=== PATIENT | female | born 1930 | race Caucasian/White ===

== ENCOUNTER 2016-12-07 13:28 | Emergency (ER) | payer MEDICARE, OTHER ==
[~2016-12-07] VITALS: Ht 149.9 cm; Wt 64.0 kg
[~2016-12-07 13:28] MED LIST: CELE20TA PO; CLOP75 PO; LEVA750T9 PO; LORT5TAB PO; OXYB5TAB33 PO; SIMV20 PO; TUSSSUS PO; ZITH250T PO
[2016-12-07 13:42] VITALS: BP 181/79; PULSE 88; RESP 22; TEMP 97.9; O2SAT 97
[2016-12-07] MEDS ORDERED: SODIUM CHLORIDE 0.9% FLUSH 10 ML FLUSH IVF PRN (14:00)
--- NOTE | 2016-12-07 14:02 | PD ---
HPI Chief Complaint: Respiratory Distress Time Seen by Provider: 13:49 Travel History International Travel<30 days: No Contact w/Intl Traveler<30days: No Traveled to known affect area: No History of Present Illness HPI The patient is a 86-year-old female who presents emergency department shortness of breath. The patient was at [facility] earlier today to have surgery on the left cataract, when she became short of breath. The patient apparently had a coughing spell and appeared short of breath, then had an O2 saturation that was in the upper 70s and lower 80s. The patient was administered Solu-Medrol and one breathing treatment by EMS and she now notes her shortness of breath has resolved. She does note a history of COPD and tobacco use, has chronic inhalers that she uses. The patient also has a history of previous CVA with left-sided deficits. The patient does note her shortness of breath has resolved, denies any current chest pain, dizziness, lightheadedness, or diaphoresis. PFSH Past Medical History Hx Anticoagulant Therapy: Yes (WARFARIN DAILY) Cerebrovascular Accident: Yes (1999) Respiratory: Yes (COPD) ?: Not : 4 Para: 4 Past Surgical History Cardiac Surgery: Yes (BILAT CEAS) Section: Yes Cholecystectomy: Yes Hysterectomy: Yes Social History Alcohol Use: No Tobacco Use: No Substance Use: No Allergies-Medications (Allergen,Severity, Reaction): Coded Allergies: No Known Allergies (Verified , 12/07/16) Reported Meds & Prescriptions Reported Meds & Active Scripts Active Lortab 5/500 (Acetaminophen/Hydrocodone Bitart) 5 Mg/500 Mg Tab 1-2 Tab PO Q6HPRN FOR PAIN Levaquin (Levofloxacin) 750 Mg Tab 750 Mg PO DAILY Reported Zocor (Simvastatin) 20 Mg Tab 20 Mg PO HS Celexa (Citalopram Hydrobromide) 20 Mg Tab 20 Mg PO DAILY Zithromax Z-Heber (Azithromycin) 250 Mg Tab 250 Mg PO DIRECTED 5 Days 500 MG (2 TABLETS) PO ON DAY 1, THEN 250 MG (1 TABLET) PO ON DAYS 2 TO 5. Plavix (Clopidogrel Bisulfate) 75 Mg Tab 75 Mg PO DAILY Ditropan (Oxybutynin Chloride) 5 Mg Tab 5 Mg PO DAILY Tussionex (Chlorphenir/Hydrocodone Polistirex) Liqcr 5 Ml PO BIDPRN Review of Systems Except as stated in HPI: all other systems reviewed are Neg General / Constitutional: No: Fever, Chills Cardiovascular: No: Chest Pain or Discomfort Respiratory: Positive: Cough, Shortness of Breath, Wheezing Gastrointestinal: No: Nausea, Vomiting, Abdominal Pain Musculoskeletal: Positive: Pain (pain in the left posterior leg), No: Edema Neurologic: Positive: Focal Abnormalities (previous left-sided weakness from prior stroke) Physical Exam Narrative GENERAL: Awake, alert, pleasant 86 year-old female who appears her stated age and is in no acute respiratory distress. SKIN: Warm and dry. HEAD: Atraumatic. Normocephalic. EYES: Pupils equal and round. No scleral icterus. No injection or drainage. ENT: No nasal bleeding or discharge. Mucous membranes pink and moist. NECK: Trachea midline. No JVD. CARDIOVASCULAR: Regular rate and rhythm. No murmur appreciated. RESPIRATORY: No accessory muscle use. Prolonged expiratory phase with a few scattered wheezes. GASTROINTESTINAL: Abdomen soft, non-tender, nondistended. No rebound tenderness. MUSCULOSKELETAL: No obvious deformities. Tenderness over the posterior aspect the left thigh and the left calf. NEUROLOGICAL: Awake and alert. No obvious cranial nerve deficits. Unable to use her left upper extremity and left lower extremity. Contractures of the upper and lower left extremity noted. PSYCHIATRIC: Appropriate mood and affect; insight and judgment normal. Data Data Last Documented VS Vital Signs Date Time Temp Pulse Resp B/P Pulse Ox O2 Delivery O2 Flow Rate FiO2 12/07/16 14:25 22 97 2 12/07/16 14:25 Nasal Cannula 12/07/16 13:42 97.9 88 181/79 Orders Complete Blood Count With Diff (12/07/16 13:49) Comprehensive Metabolic Panel (12/07/16 13:49) B-Type Natriuretic Peptide (12/07/16 13:49) Magnesium (Mg) (12/07/16 13:49) Ckmb (Isoenzyme) Profile (12/07/16 13:49) Troponin I (12/07/16 13:49) Iv Access Insert/Monitor (12/07/16 13:49) Electrocardiogram (12/07/16 13:49) Ecg Monitoring (12/07/16 13:49) Oximetry (12/07/16 13:49) Oxygen Administration (12/07/16 13:49) Chest, Single Ap (12/07/16 13:49) Us Leg Venous Doppler (12/07/16 13:49) Sodium Chloride 0.9% Flush (Ns Flush) (12/07/16 14:00) Albuterol-Ipratropium Neb (Duoneb Neb) (12/07/16 14:00) CKMB (12/07/16 14:00) CKMB% (12/07/16 14:00) Labs Laboratory Tests Test 12/07/16 14:00 White Blood Count 7.9 TH/MM3 Red Blood Count 3.90 MIL/MM3 Hemoglobin 12.3 GM/DL Hematocrit 34.8 % Mean Corpuscular Volume 89.3 FL Mean Corpuscular Hemoglobin 31.5 PG Mean Corpuscular Hemoglobin 35.3 % Concent Red Cell Distribution Width 13.0 % Platelet Count 324 TH/MM3 Mean Platelet Volume 7.4 FL Neutrophils (%) (Auto) 54.1 % Lymphocytes (%) (Auto) 33.8 % Monocytes (%) (Auto) 8.8 % Eosinophils (%) (Auto) 2.1 % Basophils (%) (Auto) 1.2 % Neutrophils # (Auto) 4.3 TH/MM3 Lymphocytes # (Auto) 2.7 TH/MM3 Monocytes # (Auto) 0.7 TH/MM3 Eosinophils # (Auto) 0.2 TH/MM3 Basophils # (Auto) 0.1 TH/MM3 CBC Comment DIFF FINAL Differential Comment Sodium Level 135 MEQ/L Potassium Level 4.2 MEQ/L Chloride Level 101 MEQ/L Carbon Dioxide Level 25.0 MEQ/L Anion Gap 9 MEQ/L Blood Urea Nitrogen 11 MG/DL Creatinine 1.09 MG/DL Estimat Glomerular Filtration 48 ML/MIN Rate Random Glucose 91 MG/DL Calcium Level 9.3 MG/DL Magnesium Level 2.0 MG/DL Total Bilirubin 0.4 MG/DL Aspartate Amino Transf 25 U/L (AST/SGOT) Alanine Aminotransferase 11 U/L (ALT/SGPT) Alkaline Phosphatase 91 U/L Total Creatine Kinase 144 U/L Creatine Kinase MB 1.7 NG/ML Troponin I LESS THAN 0.02 NG/ML B-Type Natriuretic Peptide 77 PG/ML Total Protein 7.2 GM/DL Albumin 3.5 GM/DL MDM Medical Decision Making Medical Screen Exam Complete: Yes Emergency Medical Condition: Yes Medical Record Reviewed: Yes Interpretation(s) EKG reveals normal sinus rhythm with a rate in 95. Left bundle branch block. Laboratory Tests Test 12/07/16 14:00 White Blood Count 7.9 TH/MM3 Red Blood Count 3.90 MIL/MM3 Hemoglobin 12.3 GM/DL Hematocrit 34.8 % Mean Corpuscular Volume 89.3 FL Mean Corpuscular Hemoglobin 31.5 PG Mean Corpuscular Hemoglobin 35.3 % Concent Red Cell Distribution Width 13.0 % Platelet Count 324 TH/MM3 Mean Platelet Volume 7.4 FL Neutrophils (%) (Auto) 54.1 % Lymphocytes (%) (Auto) 33.8 % Monocytes (%) (Auto) 8.8 % Eosinophils (%) (Auto) 2.1 % Basophils (%) (Auto) 1.2 % Neutrophils # (Auto) 4.3 TH/MM3 Lymphocytes # (Auto) 2.7 TH/MM3 Monocytes # (Auto) 0.7 TH/MM3 Eosinophils # (Auto) 0.2 TH/MM3 Basophils # (Auto) 0.1 TH/MM3 CBC Comment DIFF FINAL Differential Comment Sodium Level 135 MEQ/L Potassium Level 4.2 MEQ/L Chloride Level 101 MEQ/L Carbon Dioxide Level 25.0 MEQ/L Anion Gap 9 MEQ/L Blood Urea Nitrogen 11 MG/DL Creatinine 1.09 MG/DL Estimat Glomerular Filtration 48 ML/MIN Rate Random Glucose 91 MG/DL Calcium Level 9.3 MG/DL Magnesium Level 2.0 MG/DL Total Bilirubin 0.4 MG/DL Aspartate Amino Transf 25 U/L (AST/SGOT) Alanine Aminotransferase 11 U/L (ALT/SGPT) Alkaline Phosphatase 91 U/L Total Creatine Kinase 144 U/L Creatine Kinase MB 1.7 NG/ML Troponin I LESS THAN 0.02 NG/ML B-Type Natriuretic Peptide 77 PG/ML Total Protein 7.2 GM/DL Albumin 3.5 GM/DL Last Impressions Chest X-Ray 12/07/16 [id number] Signed Impressions: Service Date/Time: Wednesday, December 07, 2016 13:58 - CONCLUSION: 1. Linear atelectatic changes/scarring in the right perihilar distribution and left lower lung. 2. No confluent infiltrate or effusion. Jc Berman MD Ultrasound of the left lower extremity reveals no evidence of deep venous thrombosis within the left lower extremity. Differential Diagnosis Differential diagnosis includes COPD exacerbation, bronchitis, pneumonia, acute coronary syndrome, pulmonary embolism, pleural effusion, congestive heart failure. Narrative Course IV was established, labs are drawn and sent, and the patient was placed on cardiac telemetry monitoring and continuous pulse oximetry monitoring. EKG was ordered and interpreted. Chest x-ray was obtained. The patient received Solu- Medrol prior to arrival with one albuterol nebulizer with improvement of her symptoms, therefore, was administered 2 more DuoNeb's. Labs are unremarkable. Troponin is negative. BNP is unremarkable. Chest x-ray reveals chronic changes , no acute findings. The patient was reevaluated. The patient's O2 sat was 92% , her symptoms had improved. She does complain of leg pain, therefore, was administered Tylenol. Patient will be discharged home on prednisone Diagnosis Primary Impression: COPD exacerbation Patient Instructions: General Instructions Additional Instructions: Medications as directed. Please provide the patient a copy of her x-rays, ultrasound results, and lab results at discharge. Med/Other Pt SpecificInfo: Prescription(s) given Scripts Azithromycin (Zithromax Z-Heber)250 Mg [id number] Mg PO DIRECTED #1 DSPK Ref 0 500 MG (2 tabs) day 1, then 1 tab days 2-5. Prov:Henrique Tapia MD 12/07/16 Albuterol 18 GM Inh (Ventolin Hfa 18 GM Inh)90 Mcg/Act Aer2 Puff INH Q4H PRN ( SHORTNESS OF BREATH) #1 INHALER Ref 0 Prov:Henrique Tapia MD 12/07/16 Prednisone (Deltasone)20 Mg Tab40 Mg PO DAILY 4 Days Ref 0 Prov:Henrique Tapia MD 12/07/16 Disposition: 01 DISCHARGE HOME (discharge back to [facility]) Condition: Stable Henrique Tapia MD Dec 07, 2016 14:02
[2016-12-07 14:11] VITALS: O2SAT 99
[2016-12-07] MEDS: RESP: ALBUTEROL 2.5 MG/IPRATROPIUM 0.5 MG NEB (SCH) INH (14:11)
[2016-12-07 14:12] LABS: AUTOMATED NEUTROPHIL # 4.3 TH/MM3 (1.8-7.7); BASOPHIL # 0.1 TH/MM3 (0-0.2); BASOPHIL % 1.2 % (0.0-2.0); EOSINOPHIL # 0.2 TH/MM3 (0-0.4); EOSINOPHIL % 2.1 % (0.0-4.0); HEMATOCRIT 34.8 % (35.0-46.0); HEMO FLAGS DIFF FINAL; LYMPH % 33.8 % (9.0-44.0); LYMPHOCYTE # 2.7 TH/MM3 (1.0-4.8); MEAN CELL VOLUME 89.3 FL (80.0-100.0); MEAN CORPUSCULAR HEMOGLOBIN 31.5 PG (27.0-34.0); MEAN CORPUSCULAR HGB CONC 35.3 % (32.0-36.0); MONO % 8.8 % (0.0-8.0); NEUT % 54.1 % (16.0-70.0); PLATELET COUNT 324 TH/MM3 (150-450); WHITE BLOOD COUNT 7.9 TH/MM3 (4.0-11.0)
--- NOTE | 2016-12-07 14:15 | RADRPT ---
EXAM DATE/TIME: 12/07/2016 13:58 [facility] COMPARISON: No previous studies available for comparison. INDICATIONS : Short of breath. MEDICAL HISTORY : None. SURGICAL HISTORY : None. ENCOUNTER: Initial ACUITY: 1 day PAIN SCORE: 0/10 LOCATION: Bilateral chest FINDINGS: A single view of the chest demonstrates the lungs to be symmetrically aerated with linear atelectatic changes/scarring in the right perihilar distribution and left base. No confluent infiltrate or effus ion. Heart size is normal. Surgical clips in the right upper abdominal quadrant are characteristic of prior cholecystectomy. CONCLUSION: 1. Linear atelectatic changes/scarring in the right perihilar distribution and left lower lung. 2. No confluent infiltrate or effusion. Jc Berman MD on December 07, 2016 at 14:11 Board Certified Radiologist. This report was verified electronically.
[2016-12-07 14:25] VITALS: RESP 22; O2SAT 97
[2016-12-07 14:40] LABS: ALKALINE PHOSPHATASE 91 U/L (45-117); ALT (GPT) 11 U/L (10-53); ANION GAP 9 MEQ/L (5-15); AST (GOT) 25 U/L (15-37); BLOOD UREA NITROGEN 11 MG/DL (7-18); CHLORIDE 101 MEQ/L (98-107); CREATINE KINASE 144 U/L (26-192); GLOMERULAR FILTRATION RATE 48 ML/MIN (>89); SODIUM (NA) 135 MEQ/L (136-145); TOTAL BILIRUBIN ADULT 0.4 MG/DL (0.2-1.0)
[2016-12-07 14:41] LABS: POTASSIUM 4.2 MEQ/L (3.5-5.1)
[2016-12-07 14:53] LABS: CKMB 1.7 NG/ML (0.5-3.6)
--- NOTE | 2016-12-07 14:55 | RADRPT ---
EXAM DATE/TIME: 12/07/2016 14:20 [facility] COMPARISON: No previous studies available for comparison. INDICATIONS : Left leg pain. MEDICAL HISTORY : Stroke. Left leg pain. SURGICAL HISTORY : Cholecystectomy. section. Hysterectomy. ENCOUNTER: Initial ACUITY: 2 day PAIN SCORE: 5/10 LOCATION: Left leg. TECHNIQUE: Venous ultrasound of the leg was performed from the inguinal ligament to the proximal calf. Real-malika e, color Doppler and spectral tracing, compression and augmentation techniques were used. FINDINGS: There is normal compressibility of the deep venous system from the inguinal region to the proximal ca lf. No echogenic clot is seen in the lumen of the common femoral, femoral, popliteal, and posterior tibial veins. There is a normal response of the venous system to proximal and distal augmentation an d respiration. CONCLUSION: No evidence of deep venous thrombosis within the left lower extremity. Venkatesh Escamilla MD on December 07, 2016 at 14:53 Board Certified Radiologist. This report was verified electronically.
[2016-12-07] MEDS ORDERED: ZITHTAB PO (15:53)
[2016-12-07] MEDS ORDERED: PRED-503 PO (15:53)
[2016-12-07] MEDS ORDERED: VENTAER INH (15:53)
[2016-12-07] MEDS ORDERED: ACETAMINOPHEN 325 MG TAB PO ONE (16:00)
--- NOTE | 2016-12-08 11:03 | EKG ---
Date Performed: 12/07/2016 Time Performed: 14:54:42 PTAGE: 86 years EKG: Sinus rhythm LEFT BUNDLE BRANCH BLOCK ABNORMAL ECG PREVIOUS TRACING : 11/07/2001 10.05 DOCTOR: Jesus Palomo Interpretating Date/Time 12/08/2016 11:02:27
== END 2016-12-07 16:30 | disposition home or self-care (01) ==
LOC: NEPA 13:28
DX: J44.1 Chronic obstructive pulmonary disease with (acute) exacerbation (principal); I44.7 Left bundle-branch block, unspecified; M79.605 Pain in left leg; Z79.01 Long term (current) use of anticoagulants; Z86.73 Personal history of transient ischemic attack (TIA), and cerebral infarction without residual deficits; Z72.0 Tobacco use; R94.31 Abnormal electrocardiogram [ECG] [EKG]
CPT/HCPCS: 71010; 80053; 82550; 82552; 83735; 83880; 84484; 85025; 93005; 93971; 94664